=== PATIENT | female | born 1985 | race Caucasian/White ===

== ENCOUNTER → 2016-05-16 | Outpatient (REF) | payer OTHER ==
[~2016-05-16] MED LIST: PRENTAB74 PO
== END ==
LOC: M SFHCLERA 16:56
PROVIDERS: ATTEND Physician Assistant
DX: Z20.818 Contact with and (suspected) exposure to other bacterial communicable diseases (principal)

== ENCOUNTER → 2016-06-16 | Outpatient (REF) | payer OTHER | LOC: M SFHCLERA 10:32 | PROVIDERS: ATTEND Physician Assistant | DX: N89.8 Other specified noninflammatory disorders of vagina (principal); R10.84 Generalized abdominal pain ==

== ENCOUNTER → 2016-07-25 | Day surgery (SDC) | payer OTHER ==
[~2016-07-25] VITALS: Ht 152.4 cm; Wt 55.3 kg
[~2016-07-25] MED LIST changes: +DOCUSATE SODIUM 100 MG CAP PO SCH; +KETOROLAC 30 MG/ML VIAL (J1885) IV SCH; +KETOROLAC 60 MG/2 ML VIAL (J1885) As Ordered ONE; +LIDOCAINE 2% INJ 100 MG/5 ML SDV (FOR ANES.) As Ordered ONE; +LR 1,000 ML IV SCH; +MEDR1VL IM; +MIDAZOLAM INJ 2 MG/2 ML VIAL (J2250) As Ordered ONE; +MIRALAX *UNIT DOSE* 17GM PACKET PO PRN; +MORPHINE 2 MG/ML 1ML SYRINGE IV PRN; +ONDANSETRON 4MG/2ML VIAL (J2405) As Ordered ONE; +ONDANSETRON 4MG/2ML VIAL (J2405) IV PRN; +PERCOCET 5MG/325MG TAB PO PRN; +PREN1CHW PO; +PROMETHAZINE INJ 25 MG/ML VIAL (J2550) IV ONE; +PROPOFOL 200 MG/20 ML VIAL As Ordered ONE; +ROCURONIUM BROMIDE 50 MG/5 ML VIAL As Ordered ONE; +dexameTHASONE 4 MG/ML 1ML VIAL (J1100) As Ordered ONE; +ePHEDrine SULFATE 25 MG/5 ML(5MG/ML) SYRINGE As Ordered ONE; +fentaNYL 100 MCG/2 ML INJECTION (J3010) As Ordered ONE; +fentaNYL 250 MCG/5 ML INJECTION (J3010) As Ordered ONE
[2016-07-25 09:24] LABS: CONTROL LINE HCG INT CTR LINE PRESENT; EOS # 0.4 K/mm3 (0.0-0.50); EOS % 10.6 % (0.0-3.0); LARGE UNSTAINED CELL # 0.1 K/mm3 (0.0-0.4); LARGE UNSTAINED CELL % 1.4 % (0.0-4.0); LYMPH # 1.2 K/mm3 (1.5-4.5); LYMPH % 31.8 % (24.0-44.0); MEAN CORPUSCULAR HEMOGLOBIN 32.8 pg (27.0-33.0); MEAN CORPUSCULAR HGB CONC 35.1 g/dl (32.0-36.5); MEAN CORPUSCULAR VOLUME 93.2 fl (80.0-96.0); MONO # 0.2 K/mm3 (0.0-0.8); MONO % 4.9 % (0.0-5.0); NEUTROPHILS # 1.8 K/mm3 (1.8-7.7); NEUTROPHILS % 50.3 % (36.0-66.0); PLATELET COUNT, AUTOMATED 229 k/mm3 (150-450); RED CELL DISTRIBUTION WIDTH 12.6 % (11.5-14.5); WHITE BLOOD COUNT 3.6 K/mm3 (4.0-10.0)
[2016-07-25] MEDS: BUPIVACAINE HCL 0.25% 30 ML VIAL As Ordered ONE ×2 (12:03→12:31)
[2016-07-25] MEDS: fentaNYL 100 MCG/2 ML INJECTION (J3010) IV PRN ×4 (13:10→13:30)
[2016-07-25 14:35] VITALS: BP 109/64
--- NOTE | 2016-07-26 06:31 | RO ---
DATE OF PROCEDURE: 07/25/2016 PREPROCEDURE DIAGNOSIS: Satisfied parity. POSTPROCEDURE DIAGNOSES: Satisfied parity. Endometriosis. PROCEDURE: Bilateral laparoscopic salpingectomy. SURGEON: Sanjay Goldberg MD BOARD LINING MACHINE OPERATOR: Jerry Ansari MD ANESTHESIA: Dr. Henderson, general. COMPLICATIONS: None. URINE OUTPUT: 300 mL Kinsey catheter, removed at end of procedure. ESTIMATED BLOOD LOSS: 10 mL. INTRAVENOUS (IV) FLUID: 1200 mL isotonic fluid. DESCRIPTION OF PROCEDURE: Patient is a 31-year-old, G1, P1 with desire for permanent sterilization. Had previously, on several occasions, undergone extensive counseling on risks/benefits/alternatives/indications to permanent procedure via an elective bilateral salpingectomy. At day of surgery, still eminently reports no desire for children. Also discussed with spouse, who desires no further children. The risks/benefits/indications/alternatives were reviewed with the patient, and informed consent was obtained. Patient was taken to the operating room, where general anesthesia was obtained without difficulty. She was then placed in a low lithotomy position using gel-padded Lan stirrups. An exam under anesthesia performed and notable for an 8-week size retroverted uterus. No adnexal masses or fullness appreciated. Patient was then prepped and draped in a sterile fashion, and a Kinsey catheter was placed. After a sterile speculum was placed into the patient's vagina and the cervix was visualized, a single-tooth tenaculum was used to grasp the anterior lip of the cervix. A Kalpesh's dilator was jail advanced, size 10, into the cervix and then taped to the single-tooth tenaculum via a Steri-Strip for uterine manipulation. The sterile speculum was then removed, and gloves were exchanged. Attention was then turned to the patient's abdomen, where a 5 mm trocar and sleeve were carefully introduced into the peritoneal cavity under direct visualization at a 90-degree angle while tenting up the abdominal wall. 0.25 mL of plain Marcaine were utilized for local anesthetic at all trocar sites. Intraperitoneal placement was confirmed, and gas tubing was attached. Pressure at the time of entrance was noted to be less than 5 mmHg, consistent with proper intraperitoneal placement. A pneumoperitoneum was obtained with a maximum pressure of 15 mmHg. With the pneumoperitoneum established, the camera was advanced again under direct visualization. Upon entry into the peritoneal cavity, structures immediately below the umbilicus were inspected and found to be free of injury. A 360-degree evaluation of patient's abdomen and pelvis was notable for a normal appearing liver, uterus, fallopian tubes, and bilateral ovaries. Endometrial implants were noted along the fallopian tube as well as the anterior wall and slight scarring noted in the anterior cul-de-sac. Two additional 5 mm trocars, one on the left and one on the right aspect of the abdominal wall, were then placed under laparoscopic visualization. Bilateral ureters were identified. Using an atraumatic grasper, the right fallopian tube was grasped and tented up. In a stepwise fashion, the LigaSure device was used to clamp, cut, and electrocautery across the mesosalpinx until reaching the cornual area. At this point, the LigaSure was used to cross the remaining aspect of the fallopian tube. After this was detached in routine fashion, the fallopian tube was removed through the 5 mm trocar without complication. As this was done on the left, the exact same procedure was done on the right without complication. Afterwards, hemostasis was appreciated bilaterally. Re-examination of the pelvis noted excellent hemostasis. The trocars were then removed under direct visualization, and the gas was all turned off and desufflated. The skin incisions were reapproximated with #4-0 Monocryl in a subcuticular fashion and covered with Steribond. Then, the attention was then turned to the patient's vagina, where after Kinsey catheter was removed, the Kalpesh's dilator and single-tooth tenaculum were removed in routine fashion and noted the cervix to be hemostatic. Afterwards, a vaginal sweep demonstrated no retained foreign objects. At the completion of the case, sponge and needle counts were correct times two. Patient tolerated procedure well and was taken to the postanesthesia care unit (PACU) in stable condition. Edited: [facility] 07/30/2016 [id number]
== END | disposition home or self-care (01) ==
LOC: M SDC 08:25
PROVIDERS: ATTEND Student in an Organized Health Care Education/Training Program
DX: Z30.2 Encounter for sterilization (principal); N80.8 Other endometriosis; Z88.0 Allergy status to penicillin; Z88.2 Allergy status to sulfonamides
CPT/HCPCS: 36415; 58661; 84703; 85025; 86850; 88302; J1100; J1885; J2250; J2405; J3010

== ENCOUNTER 2017-02-13 20:33 | Inpatient (IN) | payer OTHER ==
[~2017-02-13] VITALS: Ht 152.4 cm; Wt 59.0 kg
[~2017-02-13 20:33] MED LIST changes: -DOCUSATE SODIUM 100 MG CAP PO SCH; -KETOROLAC 30 MG/ML VIAL (J1885) IV SCH; -KETOROLAC 60 MG/2 ML VIAL (J1885) As Ordered ONE; -LIDOCAINE 2% INJ 100 MG/5 ML SDV (FOR ANES.) As Ordered ONE; -LR 1,000 ML IV SCH; -MIDAZOLAM INJ 2 MG/2 ML VIAL (J2250) As Ordered ONE; -MIRALAX *UNIT DOSE* 17GM PACKET PO PRN; -MORPHINE 2 MG/ML 1ML SYRINGE IV PRN; -ONDANSETRON 4MG/2ML VIAL (J2405) As Ordered ONE; -ONDANSETRON 4MG/2ML VIAL (J2405) IV PRN; -PERCOCET 5MG/325MG TAB PO PRN; -PROMETHAZINE INJ 25 MG/ML VIAL (J2550) IV ONE; -PROPOFOL 200 MG/20 ML VIAL As Ordered ONE; -ROCURONIUM BROMIDE 50 MG/5 ML VIAL As Ordered ONE; -dexameTHASONE 4 MG/ML 1ML VIAL (J1100) As Ordered ONE; -ePHEDrine SULFATE 25 MG/5 ML(5MG/ML) SYRINGE As Ordered ONE; -fentaNYL 100 MCG/2 ML INJECTION (J3010) As Ordered ONE; -fentaNYL 250 MCG/5 ML INJECTION (J3010) As Ordered ONE
[2017-02-13] MEDS ORDERED: NS 1,000 ML IV ONE (21:45)
[2017-02-13] MEDS ORDERED: MORPHINE 2 MG/ML 1ML SYRINGE IV ONE (21:45)
[2017-02-13] MEDS ORDERED: ZOFR4TAB3 PO (22:03)
[2017-02-13] MEDS ORDERED: FLAG500T PO (22:03)
[2017-02-13] MEDS ORDERED: MORPHINE 2 MG/ML 1ML SYRINGE As Ordered ONE (22:16)
[2017-02-13 22:18] LABS: BASO # 0.1 10^3/uL (0.0-0.2); BASO % 0.8 % (0.0-1.0); EOS # 0.3 10^3/uL (0.0-0.50); EOS % 5.1 % (0.0-3.0); IMMATURE GRANULOCYTE % 0.2 % (0-0); LYMPH # 1.8 10^3/uL (1.5-4.5); MEAN CORPUSCULAR HEMOGLOBIN 31.2 pg (27.0-33.0); MEAN CORPUSCULAR HGB CONC 34.3 g/dl (32.0-36.5); MEAN CORPUSCULAR VOLUME 91.1 fl (80.0-96.0); MONO # 0.4 10^3/uL (0.0-0.8); MONO % 7.1 % (0.0-5.0); NEUTROPHILS # 3.3 10^3/uL (1.8-7.7); NEUTROPHILS % 55.8 % (36.0-66.0); PLATELET COUNT, AUTOMATED 252 10^3/uL (150-450); WHITE BLOOD COUNT 5.9 10^3/uL (4.0-10.0)
[2017-02-13 23:14] LABS: ANION GAP 5 MEQ/L (8-16); BLOOD UREA NITROGEN 4 MG/DL (7-18); CALCIUM LEVEL 8.5 MG/DL (8.5-10.1); CARBON DIOXIDE LEVEL 29 MEQ/L (21-32); CHLORIDE LEVEL 107 MEQ/L (98-107); CREATININE FOR GFR 0.63 MG/DL (0.55-1.02); GLOMERULAR FILTRATION RATE > 60.0 (>60); GLUCOSE, FASTING 82 MG/DL (70-105); SODIUM LEVEL 141 MEQ/L (136-145)
[2017-02-13] MEDS ORDERED: metroNIDAZOLE (FLAGYL) 500 MG TAB PO ONE (23:30)
[2017-02-13] MEDS ORDERED: metroNIDAZOLE (FLAGYL) 500 MG TAB As Ordered ONE (23:43)
[2017-02-14] MEDS ORDERED: ACETAMINOPHEN TAB 650MG DOSE (2X325MG) PO PRN (00:45)
[2017-02-14] MEDS ORDERED: metroNIDAZOLE (FLAGYL) 500 MG TAB As Ordered ONE (01:27)
[2017-02-14] MEDS: ONDANSETRON 4 MG TAB (S0181) PO PRN ×2 (01:46→11:42)
[2017-02-14 02:00] VITALS: BP 118/64
[2017-02-14] MEDS ORDERED: MORPHINE 2 MG/ML 1ML SYRINGE IV ONE (05:15)
[2017-02-14 06:00] VITALS: BP 116/68
[2017-02-14] MEDS: VANCOMYCIN ORAL SOL 250MG/5ML ORAL SYRINGE PO SCH ×4 (06:00→17:40)
--- NOTE | 2017-02-14 06:11 | HPE ---
DATE OF ADMISSION: 02/13/2017 This patient is a 31-year-old female. The patient's primary medical doctor is a Dr. Akhtar at [facility]. CHIEF COMPLAINT: The patient comes in with the chief complaint of intractable diarrhea. HISTORY OF PRESENT ILLNESS (HPI): As per the patient on January 12 the patient had a Streptococcal infection in the throat for which she received antibiotics. Thereafter, on January 28 she went to the doctor for what was apparently diarrhea. She was diagnosed with antibiotic associated Clostridium (C. Difficile) colitis and given Flagyl. She says she took the Flagyl for 10 days when she thereafter felt better and stopped taking the Flagyl. Three days later she began to have diarrhea again for which she went back to the doctor and renewed the Flagyl; however, she did not take it because she said it made her feel nauseous. The patient came back to her doctor today and was sent to an emergency department in the [facility] where she had a CT showing mural thickening to the rectosigmoid colon with subtle pericolonic inflammatory changes, as well as malthickening to the base of the cecum. The findings were suggestive of colitis. The patient's doctors recommended that she be transferred to our institution for further gastrointestinal (GI) work-up. The patient transferred here, being admitted under my service at this time. REVIEW OF SYSTEMS: The patient with no other acute complaints other than what was noted in the HPI. PAST MEDICAL HISTORY: History of inflammatory bowel syndrome. ALLERGIES: Numerous allergies including CLAVULANIC ACID, FENTANYL, GRAPES, PENICILLIN, SULFA DRUGS, SULFA DRUG CROSS REACTORS, BLUEBERRIES and CIPROFLOXACIN. SOCIAL HISTORY: The patient does not smoke, use drugs or drink alcohol[place]. The patient lives in [place]. The patient apparently is to be going to [place] on Saturday with her , unclear if this is a deployment or if this is a vacation. PHYSICAL EXAMINATION: VITAL SIGNS: Within normal limits. Temperature 97.4, pulse 73, respiratory rate 18, blood pressure 112/71, pulse oximetry 100% on room air. GENERAL: The patient was resting comfortably, did not appear in any distress; however the patient was somewhat anxious due to the situation. The patient is awake, alert and oriented times three. The patient is with normal affect and normal mood. HEAD: Normocephalic atraumatic. Extraocular muscles intact (EOMI), Pupils equal, round, and reactive to light and accommodation (PERRLA). CHEST: Good inspiratory and expiratory effort. No wheezes, rhonchi or rales. HEART: S1, S2, regular rate and rhythm, no murmurs, rubs, gallops (MRGs). ABDOMEN: Soft, somewhat tender to palpation; however, no rigidity or guarding. Tenderness is worse in the lower midabdominal region right above the pelvic area. EXTREMITIES: The patient with good strength in all four extremities. NEUROLOGIC: Cranial nerves II-XII grossly intact. No apparent neck lymphadenopathy. LABORATORY RESULTS: CBC grossly normal aside from very mild anemia of 11.9/34.7. Chemistry shows grossly normal findings with a low BUN of 4 and creatinine of 0.63. IMAGING: Not done on this visit as she had imaging in [facility] with a CT scan showing the above results as noted in the HPI. ASSESSMENT AND PLAN: This patient is a 31-year-old female who comes in with the chief complaint of Clostridium difficile colitis. The patient cannot be regarded as refractory to treatment as the patient was not compliant on her treatment. The patient stopped taking medication after ten days which is four days after the minimal amount of treatment even if it had been successful on the first day. Appropriate treatment is 14 days past symptomatology. Therefore, I would not regard this even as a reactivation but as an incomplete treatment. The patient is to be switched to oral vancomycin as she says she does not tolerate by mouth Flagyl at this time. The patient can be on diet as she is able to eat, in fact she says that she is very hungry. There are no impediments to ambulation. The patient can move as desired. However, the patient will require contact isolation for Clostridium difficile. The patient is for observation at this time only as the patient does not meet any sepsis criteria and looks well. Pain control with Tylenol at this time. Gastrointestinal service to be consulted in the morning.
--- NOTE | 2017-02-14 06:32 | IPNPDOC ---
Text Note Date of Service The patient was seen on 02/14/17. NOTE spoke with GI stamp redemption clerk. Based on Conversation does not Believe ID consult may better serve patients needs. Agrees with oral vanco at this time. VS,Fishbone, I+O VS, Fishbone, I+O Laboratory Tests 02/13/17 22:10 Red Blood Count 3.81 L, Mean Corpuscular Volume 91.1, Mean Corpuscular Hemoglobin 31.2, Mean Corpuscular Hemoglobin Concent 34.3, Red Cell Distribution Width 12.0, Neutrophils (%) (Auto) 55.8, Lymphocytes (%) (Auto) 31.0, Monocytes (%) (Auto) 7.1 H, Eosinophils (%) (Auto) 5.1 H, Basophils (%) ( Auto) 0.8, Neutrophils # (Auto) 3.3, Lymphocytes # (Auto) 1.8, Monocytes # (Auto ) 0.4, Eosinophils # (Auto) 0.3, Basophils # (Auto) 0.1, Calcium Level 8.5 Vital Signs Date Time Temp Pulse Resp B/P (MAP) Pulse Ox O2 Delivery O2 Flow Rate FiO2 02/14/17 02:00 97.7 74 18 118/64 (82) 99 Room Air STEPHAN SON MD Feb 14, 2017 06:32
[2017-02-14] MEDS: NS 1,000 ML IV SCH ×2 (07:00→16:55)
[2017-02-14 14:00] VITALS: BP 110/68
[2017-02-14] MEDS: ACETAMINOPH W/CODEINE #3 TAB UD PO PRN ×2 (14:13→18:47)
--- NOTE | 2017-02-14 14:36 | IPNPDOC ---
Subjective Date Seen The patient was seen on 02/14/17. Subjective Chief Complaint/HPI Patient seen and examined at the bedside. States that her abdominal pain and diarrhea improving this morning. Denies any other acute complaints at this time. Objective Physical Examination General Exam: Positive: Alert, Cooperative, No Acute Distress ENT Exam: Positive: Atraumatic, Mucous membr. moist/pink Neck Exam: Negative: JVD Chest Exam: Positive: Clear to auscultation, Normal air movement Heart Exam: Positive: Rate Normal, Normal S1, Normal S2 Abdomen Exam: Positive: Soft, Negative: Tenderness Extremity Exam: Negative: Tenderness, Swelling Psych Exam: Positive: Oriented x 3 Assessment /Plan Plan/VTE VTE Prophylaxis Ordered?: No VTE Exclusion Pharmacological: At Low Risk for VTE Plan Abd Pain, Diarrhea 2/2 C. Diff, Incomplete Outpatient Abx therapy CT Scan of the Abd/Pel report reviewed from Louise Flowers PO Vanco 250mg q6h Patient's diarrhea, abd pain improved today Patient afebrile, and with a normal WBC/lactic acid level here In addition, the patient does tell me that she has had an extensive workup for inflammatory bowel disease with apparently 6 colonoscopies since 2014, after which she notes that she was told that she has irritable bowel syndrome We will continue to monitor the patient's clinical condition Patient encouraged to advance by mouth diet as tolerated DVT Prophylaxis Ambulation Dispo--Anticipate D/C in 24-48hrs pending clinical improvement. VS[facility] Signs/I&O Vital Signs Date Time Temp Pulse Resp B/P (MAP) Pulse Ox O2 Delivery O2 Flow Rate FiO2 02/14/17 14:13 18 02/14/17 06:00 97.8 72 116/68 (84) 99 Room Air I&O- Last 24 Hours up to 6 AM 02/15/17 06:00 Intake Total 0 ml Output Total 250 ml Balance -250 ml Laboratory Data 24H LABS Laboratory Tests 2 02/13/17 20:34: Lab Scanned Report LAB OTHER 02/13/17 22:10: Immature Granulocyte % (Auto) 0.2H, White Blood Count 5.9, Red Blood Count 3.81L , Hemoglobin 11.9L, Hematocrit 34.7L, Mean Corpuscular Volume 91.1, Mean Corpuscular Hemoglobin 31.2, Mean Corpuscular Hemoglobin Concent 34.3, Red Cell Distribution Width 12.0, Platelet Count 252, Neutrophils (%) (Auto) 55.8, Lymphocytes (%) (Auto) 31.0, Monocytes (%) (Auto) 7.1H, Eosinophils (%) (Auto) 5.1H, Basophils (%) (Auto) 0.8, Neutrophils # (Auto) 3.3, Lymphocytes # (Auto) 1.8, Monocytes # (Auto) 0.4, Eosinophils # (Auto) 0.3, Basophils # (Auto) 0.1, Immature Granulocyte # (Auto) 0.0, Nucleated Red Blood Cells % (auto) 0.0, Anion Gap 5L, Glomerular Filtration Rate > 60.0, Lactic Acid Level 0.7, Blood Urea Nitrogen 4L, Creatinine 0.63, Sodium Level 141, Potassium Level 4.0, Chloride Level 107, Carbon Dioxide Level 29, Calcium Level 8.5 CBC/BMP Laboratory Tests 02/13/17 22:10 Red Blood Count 3.81 L, Mean Corpuscular Volume 91.1, Mean Corpuscular Hemoglobin 31.2, Mean Corpuscular Hemoglobin Concent 34.3, Red Cell Distribution Width 12.0, Neutrophils (%) (Auto) 55.8, Lymphocytes (%) (Auto) 31.0, Monocytes (%) (Auto) 7.1 H, Eosinophils (%) (Auto) 5.1 H, Basophils (%) ( Auto) 0.8, Neutrophils # (Auto) 3.3, Lymphocytes # (Auto) 1.8, Monocytes # (Auto ) 0.4, Eosinophils # (Auto) 0.3, Basophils # (Auto) 0.1, Calcium Level 8.5 CORTEZ BLACKWELL MD Feb 14, 2017 14:36
[2017-02-14 22:00] VITALS: BP 100/58
[2017-02-15] MEDS: VANCOMYCIN ORAL SOL 250MG/5ML ORAL SYRINGE PO SCH ×3 (00:25→12:37)
[2017-02-15] MEDS: NS 1,000 ML IV SCH (02:43)
[2017-02-15 06:00] VITALS: BP 103/60
[2017-02-15] MEDS: ACETAMINOPH W/CODEINE #3 TAB UD PO PRN ×2 (06:18→12:37)
[2017-02-15] MEDS: ONDANSETRON 4 MG TAB (S0181) PO PRN (06:18)
[2017-02-15 06:36] LABS: ALBUMIN/GLOBULIN RATIO 0.97 (1.00-1.93); ALKALINE PHOSPHATASE 44 U/L (45-117); ALT/SGPT 22 U/L (12-78); ANION GAP 6 MEQ/L (8-16); AST/SGOT 12 U/L (7-37); BILIRUBIN,TOTAL 0.4 MG/DL (0.2-1.0); BLOOD UREA NITROGEN 4 MG/DL (7-18); CALCIUM LEVEL 8.2 MG/DL (8.5-10.1); CARBON DIOXIDE LEVEL 26 MEQ/L (21-32); CHLORIDE LEVEL 111 MEQ/L (98-107); CREATININE FOR GFR 0.65 MG/DL (0.55-1.02); GLOMERULAR FILTRATION RATE > 60.0 (>60); GLUCOSE, FASTING 82 MG/DL (70-105); POTASSIUM SERUM 4.2 MEQ/L (3.5-5.1); SODIUM LEVEL 143 MEQ/L (136-145); TOTAL PROTEIN 6.1 GM/DL (6.4-8.2)
[2017-02-15 07:49] LABS: MEAN CORPUSCULAR HEMOGLOBIN 31.3 pg (27.0-33.0); MEAN CORPUSCULAR HGB CONC 34.3 g/dl (32.0-36.5); MEAN CORPUSCULAR VOLUME 91.3 fl (80.0-96.0); PLATELET COUNT, AUTOMATED 239 10^3/uL (150-450); RED CELL DISTRIBUTION WIDTH 12.1 % (11.5-14.5); WHITE BLOOD COUNT 4.8 10^3/uL (4.0-10.0)
[2017-02-15] MEDS ORDERED: INFLUENZA QUADRIVALENT PF VACCINE 0.5ML SYRINGE (90686) IM ONE (09:00)
[2017-02-15] MEDS ORDERED: ACET30TAB PO (09:42)
[2017-02-15] MEDS ORDERED: VANC250C2 PO ×2 (09:42→10:33)
--- NOTE | 2017-02-15 11:01 | DS.PDOC ---
Discharge Summary General Date of Admission Feb 13, 2017 at 20:34 Date of Discharge 02/15/2017 Primary Care Physician: A Discharge Summary PROCEDURES PERFORMED DURING STAY: None ADMITTING DIAGNOSES: 1. Clostridium difficile colitis DISCHARGE DIAGNOSES: 1. Clostridium difficile colitis 2. Abdominal pain COMPLICATIONS/CHIEF COMPLAINT: C Difficile Colitis. HISTORY OF PRESENT ILLNESS: Ms. Hickey is a 31-year-old female who presented on 02/13/2017 with the complaint of abdominal discomfort and diarrhea. The patient had been treated on 01/12/2017 for a streptococcal infection of the throat which she received antibiotics for, on 01/28/2014 she visited her primary care doctor for diarrhea and was diagnosed with antibiotic associated Clostridium difficile colitis and was given Flagyl. The patient had stated that she stopped taking the Flagyl after she felt better but that the diarrhea soon thereafter reappeared 3 days after cessation of Flagyl. The patient did not take the remaining Flagyl due to the effect of nausea and had on her. She was seen at [facility] where a CT abdomen showed mural thickening to the rectosigmoid colon with subtle pericolonic inflammatory changes as well as thickening to the base of the cecum. These findings suggestive of colitis were the reason she was referred for transfer to our facility for continuing GI work up. HOSPITAL COURSE: During the course of his stay the patient received vancomycin by mouth, she stated that her abdominal discomfort was getting better each day and that she was able to eat without discomfort. She tolerated her medication well. On day of discharge she stated she still had some minor abdominal discomfort but otherwise felt well, the diarrhea had since stopped. DISCHARGE MEDICATIONS: Please see below. ALLERGIES: Please see below. PHYSICAL EXAMINATION ON DISCHARGE: VITAL SIGNS: Please see below. GENERAL: Pleasant, sitting upright in bed, no acute distress HEENT: EOMI, nares patent bilaterally, oropharynx clear with no lesions, moist mucous membranes NECK: Supple CARDIOVASCULAR EXAMINATION: Normal S1, S2, no murmurs, rubs, gallops appreciated. RESPIRATORY EXAMINATION: Clear to auscultation bilaterally, good air expansion and effort, no rales, rhonchi or wheezing appreciated ABDOMINAL EXAMINATION: Normal acute bowel sounds 4, no organomegaly, soft, nondistended, no guarding, some minor tenderness to light palpitation . cesia- umbilical area, improved since presentation EXTREMITIES: No swelling, clubbing, cyanosis SKIN: Intact, no rashes or lesions NEUROLOGICAL EXAMINATION: no Focal deficits appreciated PSYCHIATRIC EXAMINATION: Affect is appropriate LABORATORY DATA: Please see below. IMAGING: CT abdomen done at [facility] on 02/12/2017 showed mural thickening to the rectosigmoid colon with subtle pericolonic inflammatory changes as well as mild thickening to the base of the cecum, findings suggest colitis. Clinical correlation was recommended, differential diagnosis includes inflammatory bowel disease including Crohn's and ulcerative colitis. PROGNOSIS: stable ACTIVITY: As tolerated DIET: as tolerated DISCHARGE PLAN: home with PCP f/u within one week of d/c, patient is discharged with by mouth vancomycin 13 day course. She is encouraged to complete the entire course in to seek medical attention if loose stools began again. DISPOSITION: stable to home DISCHARGE INSTRUCTIONS: 1. Home, continue with by mouth vancomycin for 13 days. ITEMS TO FOLLOWUP ON ON OUTPATIENT: 1.Please see PCP within one week of d/c DISCHARGE CONDITION: Stable TIME SPENT ON DISCHARGE: Greater than 40 minutes. Vital Signs/I&Os Vital Signs Date Time Temp Pulse Resp B/P (MAP) Pulse Ox O2 Delivery O2 Flow Rate FiO2 02/15/17 06:48 16 Room Air 02/15/17 06:00 98.3 78 103/60 (74) 99 I&O- Last 24 Hours up to 6 AM 02/16/17 06:00 Intake Total 60 ml Balance 60 ml Laboratory Data Labs 24H Laboratory Tests 2 02/15/17 05:51: Nucleated Red Blood Cells % (auto) 0.0, Anion Gap 6L, Glomerular Filtration Rate > 60.0, Blood Urea Nitrogen 4L, Creatinine 0.65, Sodium Level 143, Potassium Level 4.2, Chloride Level 111H, Carbon Dioxide Level 26, Calcium Level 8.2L, Aspartate Amino Transf (AST/SGOT) 12, Alanine Aminotransferase (ALT/ SGPT) 22, Alkaline Phosphatase 44L, Total Bilirubin 0.4, Total Protein 6.1L, Albumin 3.0L, Albumin/Globulin Ratio 0.97L CBC/BMP Laboratory Tests 02/15/17 05:51 Red Blood Count 3.58 L, Mean Corpuscular Volume 91.3, Mean Corpuscular Hemoglobin 31.3, Mean Corpuscular Hemoglobin Concent 34.3, Red Cell Distribution Width 12.1, Calcium Level 8.2 L, Aspartate Amino Transf (AST/SGOT) 12, Alanine Aminotransferase (ALT/SGPT) 22, Alkaline Phosphatase 44 L, Total Bilirubin 0.4, Total Protein 6.1 L, Albumin 3.0 L Discharge Medications Scheduled Vancomycin Hcl (Vancomycin HCl) 250 Mg Cap, 250 MG PO Q6H Scheduled PRN Acetaminophen/Codeine (Tylenol/Codeine #3) Tab, 1 EA PO Q4HP PRN for MILD PAIN (PS 1-4) Allergies Coded Allergies: Clavulanic Acid (Verified Allergy, Severe, THROAT SWELLS, 02/13/17) Fentanyl (Verified Allergy, Severe, THROAT SWELLS, 02/13/17) Grape (Verified Allergy, Severe, THROAT SWELLS, 02/13/17) Penicillins (Verified Allergy, Severe, THROAT SWELLS, 02/13/17) Penicillins Cross Reactors (Verified Allergy, Severe, THROAT SWELLS, 02/13) Sulfa Drugs (Verified Allergy, Severe, THROAT SWELLS, 02/13/17) Sulfa Drugs Cross Reactors (Verified Allergy, Severe, THROAT SWELLS, 02/13) Blueberry (Unverified Allergy, Mild, 02/13/17) Ciprofloxacin (Verified Allergy, Unknown, 02/13/17) GME ATTESTATION GME ATTESTATION My faculty preceptor for this patient encounter was physically present during the encounter and was fully available. All aspects of the patient interview, examination, medical decision making process, and medical care plan development were reviewed and approved by the faculty preceptor. The faculty preceptor is aware and concurs with the plan as stated in the body of this note and will attest to such by his/her cosignature. GME ATTESTATION GME ATTESTATION My faculty preceptor for this patient encounter was physically present during the encounter and was fully available. All aspects of the patient interview, examination, medical decision making process, and medical care plan development were reviewed and approved by the faculty preceptor. The faculty preceptor is aware and concurs with the plan as stated in the body of this note and will attest to such by his/her cosignature. SHILPI GREGORY DO Feb 15, 2017 11:01
== END 2017-02-15 12:43 | disposition home or self-care (01) | DRG 373 ==
LOC: M ED 20:33 → M ED INP 20:34 → OBSVTOIN 20:34 → M MSPAV 02-14 02:00 → INTOOBSV 02-14 14:36 → OBSVTOIN 02-14 14:36
PROVIDERS: ADMIT Internal Medicine; ATTEND Internal Medicine
DX: A04.72 Enterocolitis due to Clostridium difficile, not specified as recurrent (principal); Z88.2 Allergy status to sulfonamides; Z91.018 Allergy to other foods; Z88.1 Allergy status to other antibiotic agents; Z88.0 Allergy status to penicillin